=== PATIENT | female | born 1980 | race Two or more races ===

== ENCOUNTER 2016-06-10 04:05 | Inpatient (IN) | payer MEDICAID ==
[2016-06-10] MEDS ORDERED: OXYTOCIN 10 UNITS/ML VIAL ONE (04:23)
[2016-06-10] MEDS ORDERED: IV START KIT ONE (04:23)
[2016-06-10] MEDS ORDERED: LIDOCAINE Viscous 2% 15 ML UDCUP ONE (04:23)
[2016-06-10] MEDS ORDERED: LIDOCAINE 1% (PRES FREE) 30 ML VIAL ONE (04:23)
[2016-06-10] MEDS ORDERED: LACTATED RINGERS 1,000 ML ONE (04:23)
[2016-06-10] MEDS ORDERED: MINERAL OIL 25 ML BOT ONE (04:23)
[2016-06-10] MEDS ORDERED: SODIUM CHLORIDE 0.9% FLUSH 20 ML ONE (04:24)
[2016-06-10] MEDS ORDERED: PUMP TUBING ONE (04:24)
[2016-06-10] MEDS ORDERED: OXYTOCIN IN NS 500 ML IV ONE (04:24)
[2016-06-10 04:37] VITALS: BMI 26.2
[2016-06-10] MEDS ORDERED: LACTATED RINGERS 1,000 ML IV PRN ×2 (04:44→05:32)
[2016-06-10] MEDS ORDERED: OXYTOCIN IN NS 334 ML IV PRN (04:44)
[2016-06-10 04:51] LABS: HEMATOCRIT 36.3 % (37.0-47.0); HEMOGLOBIN 12.1 gm/l (12.0-16.0); MEAN CELL VOLUME 88.8 fl (81.0-99.0); MEAN CORPUSCULAR HEMOGLOBIN 29.6 pg (27.0-31.0); MEAN CORPUSCULAR HGB CONC 33.3 g/dl (33.0-37.0); RED CELL DISTRIBUTION WIDTH 16.2 % (11.5-14.5)
[2016-06-10] MEDS ORDERED: MINERAL OIL 25 ML BOT TP ONE (05:13)
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
[2016-06-10] MEDS ORDERED: LANOLIN 50 APPLIC/7G TUBE TP PRN (05:32)
[2016-06-10] MEDS ORDERED: HYDROCODONE/ACETAMINOPHEN 5/325MG TABLET PO PRN (05:32)
[2016-06-10] MEDS ORDERED: OXYTOCIN IN NS 167 ML IV PRN (05:32)
[2016-06-10] MEDS ORDERED: DOCUSATE SODIUM 100 MG CAPSULE PO PRN (05:32)
[2016-06-10] MEDS ORDERED: BENZOCAINE/MENTHOL 60 APPLIC/BOT TP PRN (05:32)
--- NOTE | 2016-06-10 05:32 | PCMDEL ---
Delivery Note - Labor 1st stage (hr/min):: 1 14 min 2nd stage (hr/min):: 38 min 3rd stage (hr/min):: 3 min Total (hr/min):: 1 hour 55 min Pushed (hr/min):: 38 min - Delivery Delivery (Date): 06/10/16 Delivery (Time): 05:15 Infant Gender: Female Presentation: Cephalic Umbilical Cord: 3 Vessel Delayed Cord Clamping:: < 1-2 min 1 Minute Total: 9 5 Minute Total: 9 Placenta:: normal EBL:: 150 ml Perineum:: intact Suture:: n/a Anesthesia/Meds:: n/a Length ROM:: 38 min Comments:: vigorous female, no complications
[2016-06-10] MEDS: IBUPROFEN 800 MG TABLET PO PRN ×3 (06:50→21:47)
[2016-06-11 06:29] LABS: HEMATOCRIT 32.4 % (37.0-47.0); HEMOGLOBIN 10.7 gm/l (12.0-16.0)
[2016-06-11 08:02] VITALS: BP 116/56
--- NOTE | 2016-06-11 12:01 | PDOC39B ---
Hospital Course: ADMIT DATE: 06/10/16 DISCHARGE DATE: 06/11/16 ADMISSION DIAGNOSES: Term Labor PROCEDURES/EVENTS: HOSPITAL COURSE: 35 year old admitted at 38 weeks gestation in active labor. She delivered a viable female on 06/10/16 at 05:15 via without complications with Apgars 9/9. EBL was 150 mL, Hgb was 12.1 -> 10.7. Her course was uncomplicated. By the day of discharge the patient was ambulating, eating, voiding, and passing flatus without difficulty. Pain controlled and lochia appropriate. She is . She will is unsure of her control. Pediatric provider is Kerry. - Physical Exam Vital Signs: Temp Pulse Resp BP Pulse Ox 98.0 F 53 16 116/56 06/11/16 08:01 06/11/16 08:01 06/11/16 08:01 06/11/16 08:01 General: Afebrile Psych/Mental Status: Mood/Affect Appropriate Neurological: Oriented x 4 Lungs: Clear to Auscultation Bilaterally Cardiovascular: Regular Rate and Rhythm Fundus: Firm, Below Umbilicus Abdomen: Normal Bowel Sounds - Discharge Diagnosis (1) Vaginal delivery Status: AcuteAssessment/Plan: Doing well Normal Exam OK to discharge today - Discharge Plan Condition: Stable Disposition: Home Prescriptions: Docusate Sodium [COLACE 100 MG CAPSULE (SHF)] 100 mg PO DAILY PRN #60 PRN Reason: Comfort Ibuprofen [IBUPROFEN 800 MG TABLET (SHF)] 800 mg PO Q6H PRN #60 PRN Reason: Pain (Mild) Vit/Fe Fumarate/FA [ PLUS TABLET *SHF] 1 tab PO DAILY #30 Follow-Up: [facility] [Provider Group] - In 6 weeks
== END 2016-06-11 14:30 | disposition home or self-care (01) | DRG 775 ==
LOC: FBC 04:05 → FBCOUT 04:05 → FBC 04:23
PROVIDERS: ADMIT Family Medicine; ATTEND Family Medicine
PROC: 10E0XZZ Delivery of Products of Conception, External Approach (ICD-10-PCS; principal; 2016-06-10)
DX: O62.3 Precipitate labor (principal); Z3A.38 38 weeks gestation of pregnancy; Z37.0 Single live birth; O09.523 Supervision of elderly multigravida, third trimester